=== PATIENT | female | born 1930 ===

== ENCOUNTER 2021-08-02 06:05 | Observation (INO) ==
[~2021-08-02 06:05] MED LIST: Buffered Lidocaine 1% SYRIN 1 ml INTRADERM ONE; Famotidine IV 10 MG/ML 2 ml VIAL (20 mg) IV ONE; Lactated Ringers 1000 ml BAG 1,000 ML IV SCH
[2021-08-02] MEDS ORDERED: Famotidine IV 10 MG/ML 2 ml VIAL (20 mg) ONE (06:20)
[2021-08-02] MEDS ORDERED: ceFAZolin 2 GM in NS PREMIX 2 GM/100 ML BAG IVPB ONE (06:20)
[2021-08-02] MEDS ORDERED: fentaNYL 100 mcg/2 ml 50 MCG/ML VIAL ONE (07:03)
[2021-08-02] MEDS ORDERED: Phenylephrine IV 10 MG/ML 1 ml VIAL ONE (07:57)
[2021-08-02] MEDS ORDERED: Naloxone 0.4 mg VIAL 0.4 mg/ml 1 ml VIAL IV PRN (08:24)
[2021-08-02] MEDS ORDERED: fentaNYL 100 mcg/2 ml 50 MCG/ML VIAL IV PRN (08:24)
[2021-08-02] MEDS ORDERED: Vancomycin 1,000 MG VIAL ONE (09:04)
[2021-08-02] MEDS ORDERED: Propofol 10 MG/ML 20 ML BTL ONE (09:36)
[2021-08-02] MEDS ORDERED: Magnesium Hydroxide LIQ 30 ML UDC PO PRN (10:20)
[2021-08-02] MEDS ORDERED: Morphine 2 MG/ML SYRINGE IV PRN (10:20)
[2021-08-02] MEDS ORDERED: Lactulose 30 ml UDC PO PRN (10:20)
[2021-08-02] MEDS ORDERED: NF:IPRATROPIUM BR (NF)0.03% NASAL 1 SPRAY BTL BOTH NARES PRN (10:33)
[2021-08-02] MEDS: D5W 1/2 NS 1000 ml BAG 1,000 ML IV SCH ×2 (12:46→21:35)
[2021-08-02] MEDS: ceFAZolin 1 GM in Dextrose 1 GM/50 ML BAG IVPB SCH ×2 (16:22→23:39)
[2021-08-02] MEDS: Magnesium Hydroxide LIQ 30 ML UDC PO SCH (21:30)
[2021-08-02] MEDS: Latanoprost 0.005% 2.5 ml BTL BOTH EYES SCH (21:32)
[2021-08-03 05:14] LABS: Hematocrit 29 % (35-47); Hemoglobin 9.7 g/dL (12.0-16.0); Mean Platelet Volume 8.1 fL (7.4-10.4); Platelet Count 220 10^3/uL (150-450)
[2021-08-03 05:34] LABS: Calcium 8.2 mg/dL (8.6-10.3); Potassium 4.3 mmol/L (3.5-5.0); eGFR CKD-EPI 66.8 (>60)
[2021-08-03] MEDS: D5W 1/2 NS 1000 ml BAG 1,000 ML IV SCH (06:04)
[2021-08-03] MEDS: ceFAZolin 1 GM in Dextrose 1 GM/50 ML BAG IVPB SCH (08:15)
[2021-08-03] MEDS: Vitamin THERAPEUTIC TAB PO SCH (08:17)
[2021-08-03] MEDS: Magnesium Hydroxide LIQ 30 ML UDC PO SCH ×2 (08:18→20:55)
[2021-08-03] MEDS: Latanoprost 0.005% 2.5 ml BTL BOTH EYES SCH (20:54)
[2021-08-04 06:53] LABS: Hematocrit 28 % (35-47); Hemoglobin 9.4 g/dL (12.0-16.0); Mean Platelet Volume 7.9 fL (7.4-10.4); Platelet Count 191 10^3/uL (150-450)
[2021-08-04] MEDS: Vitamin THERAPEUTIC TAB PO SCH (09:01)
[2021-08-04] MEDS: Magnesium Hydroxide LIQ 30 ML UDC PO SCH (09:02)
[2021-08-04 11:45] VITALS: BP 112/71
== END 2021-08-04 14:15 | disposition home or self-care (01) ==
LOC: OR 06:05 → SSU 06:05
PROVIDERS: ADMIT Orthopaedic Surgery; ATTEND Orthopaedic Surgery